=== PATIENT | female | born 1995 | race Hispanic/Latino ===

== ENCOUNTER 2019-04-17 14:38 | Emergency (ER) | payer OTHER ==
[2019-04-17 15:32] LABS: #Lymphocytes 0.7 thou/uL (1.20-3.40); #Monocytes 0.6 thou/uL (0.11-0.59); #Neutrophils 6.5 thou/uL (1.40-6.50); %Basophils 0.1 % (0.0-1.0); %Eosinophils 0.1 % (0.0-10.0); %Lymphocytes 9.5 % (21.0-51.0); %Monocytes 7.8 % (0.0-10.0); %Neutrophils 82.5 % (42.0-75.0); Hemoglobin 11.3 g/dL (12.0-16.0); Mean Corpuscular HGB CONC 35.5 g/dL (32.0-36.0); Mean Corpuscular Hemoglobin 32.5 pg (27.0-31.0); Mean Corpuscular Volume 91.7 fL (78.0-98.0); Mean Platelet Volume 7.6 fL (7.4-10.4); Platelet Count 231 thou/uL (130-400); Red Blood Cell (RBC) Count 3.47 mill/uL (4.20-5.40); White Blood Cell (WBC) Count 7.8 thou/uL (4.8-10.8)
[2019-04-17] MEDS ORDERED: Ondansetron PF 4 MG/2 ML Vial ONE (15:32)
[2019-04-17 15:55] LABS: ALT (SGPT) 22 U/L (8-55); AST (SGOT) 19 U/L (5-34); Albumin 3.4 g/dL (3.5-5.0); Alkaline Phosphatase 57 U/L (40-110); Anion Gap 9 mmol/L (10-20); BUN (Urea Nitrogen) 4 mg/dL (7.0-18.7); Bilirubin, Total 0.5 mg/dL (0.2-1.2); Calc. Creatinine Clearance 0 mL/min (70-130); Calcium 8.8 mg/dL (7.8-10.44); Carbon Dioxide 23 mmol/L (22-29); Chloride 103 mmol/L (98-107); Estimated GFR-MDRD Greater than 90; Globulin 3.6 g/dL (2.4-3.5); Glucose 103 mg/dL (70-105); Lipase 11 U/L (8-78); Potassium 3.4 mmol/L (3.5-5.1); Sodium 132 mmol/L (136-145)
[2019-04-17 16:04] LABS: Bilirubin Negative (Negative); Blood, Urine Negative (Negative); Clarity Clear (Clear); Glucose, Urine (Dipstick) Normal (Negative); Leukocyte Negative Leu/uL (Negative); Nitrite Negative (Negative); Protein, Urine (Dipstick) Negative (Neg-Trace); Urobilinogen Normal mg/dL (Less than 2)
== END 2019-04-17 16:58 | disposition home or self-care (01) ==
LOC: ERS 14:38
DX: O21.9 Vomiting of pregnancy, unspecified (principal); Z31.9 Encounter for procreative management, unspecified
CPT/HCPCS: 36415; 70450; 80053; 81003; 83690; 85025; 96361; 96374; J2405

== ENCOUNTER 2019-05-01 09:18 | Outpatient (CLI) | payer OTHER ==
--- NOTE | 2019-05-01 09:57 | ULT ---
EXAM: OB ultrasound COMPARISON: None HISTORY: female. Evaluate size, dates, and anatomy. TECHNIQUE: Multiplanar grayscale and color Doppler images were obtained in a transabdominal ult rasound. FINDINGS: There is a single live intrauterine with heart rate of 144 bpm. A survey wa s performed which is unremarkable. The head, intracranial structures, heart, stomach, kidneys, umbilical cord, umbilical cord insertion, spine, face, and extremities were evaluated and were unrema rkable. Estimated weight is 366 g. Average age of the fetus based off today's examination is 20 weeks 4 days. BPD 4.73 cm -- 20 weeks 3 days HC 17.97 cm -- 20 weeks 3 days AC 15.63 cm -- 20 weeks 6 days FL 3.35 cm -- 20 weeks 4 days The placenta is anterior in location without focal abnormality. ISAI is 11.8 cm which is normal. The cervix is normal in length. There is no evidence of placenta previa. IMPRESSION: Single live intrauterine with estimated age of 20 weeks 4 days.
== END 2019-05-01 09:19 | disposition home or self-care (01) ==
LOC: BICULT 09:18
PROVIDERS: ATTEND Family Medicine
DX: Z34.02 Encounter for supervision of normal first pregnancy, second trimester (principal); Z3A.20 20 weeks gestation of pregnancy
CPT/HCPCS: 76805

== ENCOUNTER 2019-09-15 04:31 | Outpatient (CLI) | payer OTHER ==
[2019-09-15 18:04] LABS: SARS-CoV-2 MS2 Positive; SARS-CoV-2 N Gene Negative; SARS-CoV-2 S Gene Negative; SARS-CoV-2 orf1ab Negative
== END 2019-09-15 04:32 | disposition home or self-care (01) ==
LOC: ERS 04:31
PROVIDERS: ATTEND Family Medicine
DX: Z01.812 Encounter for preprocedural laboratory examination (principal); Z11.59 Encounter for screening for other viral diseases
CPT/HCPCS: 87635; U0003

== ENCOUNTER 2019-09-16 19:00 | Inpatient (IN) | payer OTHER ==
[~2019-09-16 19:00] MED LIST: Bupivacaine PF 0.5% 30 ML VIAL ONE; Bupivacaine/Epinephrine 0.25% 30 ML VIAL ONE
[2019-09-16] MEDS ORDERED: Ibuprofen 800 MG TAB PO PRN (19:47)
[2019-09-16] MEDS ORDERED: Lidocaine 1% (PF) 30 ML VIAL SC PRN (19:47)
[2019-09-16] MEDS ORDERED: Ondansetron PF 4 MG/2 ML Vial IVP PRN (19:47)
[2019-09-16] MEDS ORDERED: NS / Oxytocin 40 units/1000ml 1,000 ML IV PRN (19:47)
[2019-09-16] MEDS ORDERED: Carboprost 250 MCG/ML AMP IM PRN (19:47)
[2019-09-16] MEDS ORDERED: hydrALAZINE 20 MG/ML VIAL SLOW IVP PRN (19:47)
[2019-09-16] MEDS ORDERED: Methylergonovine 0.2 MG/ML VIAL IM PRN (19:47)
[2019-09-16] MEDS ORDERED: NS w/ Oxytocin 10 units 500 ML IV SCH ×2 (19:47)
[2019-09-16] MEDS ORDERED: Diphenoxylate HCl/Atropine Tablet PO PRN (19:47)
[2019-09-16] MEDS ORDERED: HYDROcodone/Acetaminophen 5/325 mg Tablet PO PRN (19:47)
[2019-09-16] MEDS ORDERED: Misoprostol 200 MCG TAB PR PRN (19:47)
[2019-09-16] MEDS ORDERED: Promethazine HCl 25 MG/ML VIAL IM PRN (19:47)
[2019-09-16] MEDS ORDERED: Butorphanol Tartrate 1 MG/ML VIAL SLOW IVP PRN (19:47)
[2019-09-16] MEDS ORDERED: Penicillin G Potassium 5 MILL.UNITS in Sodium Chloride 0.9% 100 ML IVPB SCH (20:00)
[2019-09-16 20:22] VITALS: BMI 29.9
[2019-09-16 20:37] LABS: Hemoglobin 10.9 g/dL (12.0-16.0); Mean Corpuscular HGB CONC 33.3 g/dL (32.0-36.0); Mean Corpuscular Hemoglobin 29.7 pg (27.0-31.0); Mean Corpuscular Volume 89.1 fL (78.0-98.0); Mean Platelet Volume 8.3 fL (7.4-10.4); Platelet Count 286 thou/uL (130-400); RBC Distribution Width 12.6 % (11.5-14.5); Red Blood Cell (RBC) Count 3.67 mill/uL (4.20-5.40); White Blood Cell (WBC) Count 6.6 thou/uL (4.8-10.8)
[2019-09-16] MEDS: Lactated Ringer's 1,000 ML IV SCH (20:55)
[2019-09-16] MEDS: Misoprostol 100 MCG TAB PO SCH (20:56)
[2019-09-16 21:19] LABS: Syphilis Antibody Nonreactive (Nonreactive); Syphilis Antibody Index 0.06 S/CO (<1.00 Non-Reactive)
[2019-09-16 21:22] LABS: HBSAg Index 0.12 S/CO (0-0.99); Hep B Surf Ag Non-Reactive S/CO (NonReactive)
[2019-09-17] MEDS: Misoprostol 100 MCG TAB PO SCH ×3 (00:11→06:58)
[2019-09-17] MEDS: Lactated Ringer's 1,000 ML IV SCH ×3 (01:34→08:33)
[2019-09-17] MEDS ORDERED: Fentanyl 4 mcg/Bup 0.1% Cadd 100 ML ONE ×2 (05:14→14:03)
[2019-09-17] MEDS: Penicillin G 2.5 MILL.units 2.5 MILL.UNITS in Premix Bag 1 BAG IVPB SCH ×5 (05:45→19:02)
[2019-09-17] MEDS ORDERED: Ondansetron PF 4 MG/2 ML Vial IVP PRN ×3 (06:00→19:17)
[2019-09-17] MEDS ORDERED: Promethazine HCl 25 MG/ML VIAL IM PRN ×3 (06:00→19:17)
[2019-09-17] MEDS ORDERED: Communication Order-Pharmacy FS SCH ×2 (06:00→17:30)
[2019-09-17] MEDS ORDERED: Naloxone HCl 0.4 mg/ml Vial IVP PRN ×4 (06:00→17:26)
[2019-09-17] MEDS ORDERED: Fentanyl 4 mcg/Bupivacaine 0.1% Cassette 100 ML EPIDURAL SCH (06:00)
[2019-09-17] MEDS ORDERED: EPHEDRINE 25 MG/5 ML SYRINGE SLOW IVP PRN (06:00)
[2019-09-17] MEDS ORDERED: Acetaminophen 325 MG TAB PO PRN (06:00)
[2019-09-17] MEDS ORDERED: Lactated Ringer's 500 ML IV PRN (06:00)
[2019-09-17] MEDS ORDERED: diphenhydrAMINE 50 MG/ML VIAL IVP PRN ×2 (06:00→17:26)
[2019-09-17] MEDS ORDERED: Lidocaine 2% 10 ML INJ ONE (15:47)
[2019-09-17] MEDS ORDERED: EPINEPHrine 1 MG/ML AMP ONE (15:47)
[2019-09-17] MEDS ORDERED: Ondansetron PF 4 MG/2 ML Vial ONE (16:23)
[2019-09-17] MEDS ORDERED: PHENYLEPHRINE-NS 100 MCG/ML 10 ML SYRINGE ONE (16:23)
[2019-09-17] MEDS ORDERED: Ketorolac Tromethamine 30 MG/ML VIAL ONE (16:23)
[2019-09-17] MEDS ORDERED: Dexamethasone 4 mg/ml Vial ONE (16:23)
[2019-09-17] MEDS ORDERED: Oxytocin 10 UNITS/ML VIAL ONE ×2 (16:23→16:57)
[2019-09-17] MEDS ORDERED: EPHEDRINE 25 MG/5 ML SYRINGE ONE (16:23)
[2019-09-17] MEDS ORDERED: MORPHINE 5 MG/10 ML PF VIAL ONE (16:27)
[2019-09-17 17:06] LABS: Actual Bicarbonate (HCO3v) 23 mEq/L (22-28); Analyzer IN Cardio OR; Base Excess -2.6 mEq/L (-2.0 to +3.0); Base Excess (BEa) -4.8 mEq/L (-2.0 to +3.0); pH (Cord, venous) 7.36 (7.32-7.43)
[2019-09-17] MEDS ORDERED: HYDROmorphone 2 MG/ML VIAL SLOW IVP PRN (17:26)
[2019-09-17] MEDS ORDERED: Ketorolac Tromethamine 30 MG/ML VIAL IVP PRN (17:26)
[2019-09-17] MEDS ORDERED: L&D-Morphine 4 MG/ML VIAL SLOW IVP PRN (17:26)
[2019-09-17] MEDS ORDERED: Promethazine HCl 25 MG SUPP PR PRN (17:26)
[2019-09-17] MEDS ORDERED: Ondansetron HCl/PF 4 MG/2 ML Vial IVP PRN (17:26)
[2019-09-17] MEDS ORDERED: Naloxone HCl 0.4 mg/ml Vial IV PRN (17:26)
[2019-09-17] MEDS ORDERED: Meperidine HCl/PF 25 MG/ML VIAL SLOW IVP PRN (17:26)
[2019-09-17] MEDS ORDERED: NS / Oxytocin 40 units/1000ml 1,000 ML IV SCH (19:17)
[2019-09-17] MEDS ORDERED: hydrALAZINE 20 MG/ML VIAL SLOW IVP PRN (19:17)
[2019-09-17] MEDS ORDERED: Bisacodyl 10 MG SUPP PR PRN (19:17)
[2019-09-17] MEDS ORDERED: Adacel (T-DAP) 0.5 ML SYRINGE IM ONE (19:17)
[2019-09-17] MEDS ORDERED: diphenhydrAMINE 25 MG CAP PO PRN (19:17)
[2019-09-17] MEDS ORDERED: Lanolin Ointment 7 GM TUBE TOP PRN (19:17)
[2019-09-17] MEDS ORDERED: Simethicone Chewable 80 MG TAB PO PRN (19:17)
[2019-09-17] MEDS: Ferrous Sulfate 325 MG TAB PO SCH (22:07)
[2019-09-17] MEDS: Docusate Calcium (SURFAK) 240 MG CAP PO SCH (22:07)
[2019-09-17] MEDS: Ketorolac Tromethamine 30 MG/ML VIAL IVP SCH (22:39)
[2019-09-18] MEDS: Ketorolac Tromethamine 30 MG/ML VIAL IVP SCH ×2 (02:14→05:02)
[2019-09-18] MEDS ORDERED: Meperidine HCl/PF 25 MG/ML VIAL IM PRN (05:30)
[2019-09-18] MEDS ORDERED: HYDROcodone/Acetaminophen 5/325 mg Tablet PO PRN (05:30)
[2019-09-18] MEDS: Sodium Chloride 0.9% 1,000 ML IV SCH ×2 (06:08→07:45)
[2019-09-18 06:16] LABS: Hemoglobin 8.2 g/dL (12.0-16.0); Mean Corpuscular HGB CONC 33.7 g/dL (32.0-36.0); Mean Corpuscular Hemoglobin 30.7 pg (27.0-31.0); Mean Platelet Volume 8.4 fL (7.4-10.4); Platelet Count 210 thou/uL (130-400); RBC Distribution Width 12.8 % (11.5-14.5); Red Blood Cell (RBC) Count 2.68 mill/uL (4.20-5.40); White Blood Cell (WBC) Count 10.4 thou/uL (4.8-10.8)
[2019-09-18] MEDS ORDERED: Sodium Chloride 0.9% 10 ML ONE ×2 (07:36→07:47)
--- NOTE | 2019-09-18 07:56 | PDOC.OPDEL ---
OB Operative/Delivery Note Delivery Dr/Surgeon: Lenny Assist: Magui PGY-3 Pre-Delivery Diagnosis: non-reassuring tracing Procedure/Post Delivery Dx: primary low transverse CS Weeks gestation: 40 Anesthesia: epidural - Findings A Sex: male Weight: 3.345 kg (kg) - 1 min: 8 - 5 min: 9 - Additional Findings/Plan Placenta delivered: manual removal findings: low transverse hysterotomy without extension, other (There was a 1x1 cm lesion off the posterior of the uterus appeared to be possibly enodmetriosis in nature. No bleeding was noted) Estimated blood loss: 467 Compilations/Other Findings: Procedure in Detail: After risks, benefits, and alternatives were explained to the patient, she gave informed consent. Pre-operative antibiotics included Cefazolin 2 gram IV. The patient was taken to the operating room and spinal anesthesia was initiated. She was placed in the supine position with a left tilt and prepped and draped in usual sterile fashion. A Pfannenstiel incision was made with a scalpel and carried down to the level of the fascia which was sharply nicked. The fascial cut was extended bilaterally with curved Bah sissors. The inferior and superior edges of the cut fascial edges were elevated with Suzan clamps and the underlying rectus muscles were sharply and bluntly dissected free. The recti were divided digitally and retracted manually. The peritoneum was entered bluntly and retracted manually. Bladder blade was placed. Bladder flap was created with Metzenbaum scissors. A low transverse score was made with the scalpel and the uterus was entered in the midline with the scalpel. Clear fluid was seen. The hysterotomy was extended manually. The was noted to be vertex and was easily delivered by fundal pressure. Mouth and nares were bulb suctioned. Cord clamped and cut and grossly normal male/female infant was handed to waiting nurse. Cord blood was obtained. Placenta was manually extracted, found to be intact with 3 vessel cord and discarded. The uterus was externalized and the endometrium was curetted with a dry lap. The bladder blade was replaced and the uterus was closed with a running locking 1-0 Moncryl suture. Following this hemostasis was noted. The abdomen was irrigated with saline and suctioned free of clots. There was noted to be a small growth of posterior of uterus thought to be endometriosis. The incision was dressed with seprafilm. The uterus was internalized and the hysterotomy was again noted to be hemostatic. The peritoneum was then closed with 3-0 vicryl suture in running fashion. The fascia was closed with a running non-locking 0-PDS suture. The subcutaneous tissue was irrigated and there were no bleeders. The subq layer was then approximated with 3 interrpted 3-0 vicryl suture. The skin was approximated with aquilino and a pressure dressing was placed. All counts were correct. The patient tolerated the procedure well and was taken to the recovery room in stable condition. Complications: None Specimens: Cord blood sent to lab for blood type Findings: Grossly normal male/female infant with apgars of 8 and 9 Grossly normal placenta with 3 vessel cord discarded. Drains: Gee to gravity draining clear urine Post delivery plan: routine recovery
[2019-09-18] MEDS: Ferrous Sulfate 325 MG TAB PO SCH ×2 (09:50→22:19)
[2019-09-18] MEDS: Prenatal Vitamin 1 TAB PO SCH (09:50)
[2019-09-18] MEDS: Docusate Calcium (SURFAK) 240 MG CAP PO SCH ×2 (09:51→22:19)
[2019-09-18] MEDS: Ibuprofen 800 MG TAB PO SCH ×2 (14:03→22:19)
[2019-09-18] MEDS: HYDROcodone/Acetaminophen 5/325 mg Tablet PO PRN (16:41)
[2019-09-18] MEDS ORDERED: Ibuprofen 800 MG TAB PO SCH (23:00)
[2019-09-19] MEDS: Ibuprofen 800 MG TAB PO SCH ×2 (05:19→14:17)
[2019-09-19] MEDS: HYDROcodone/Acetaminophen 5/325 mg Tablet PO PRN (06:53)
[2019-09-19] MEDS: Ferrous Sulfate 325 MG TAB PO SCH (09:05)
[2019-09-19] MEDS: Docusate Calcium (SURFAK) 240 MG CAP PO SCH (09:06)
[2019-09-19] MEDS: Prenatal Vitamin 1 TAB PO SCH (09:06)
[2019-09-19 16:16] VITALS: BP 92/54; TEMP 98.1
== END 2019-09-19 17:30 | disposition home or self-care (01) | DRG 788 ==
LOC: L&D 19:46 → 3SW 09-17 20:10
PROVIDERS: ADMIT Family Medicine; ATTEND Family Medicine
PROC: 10D00Z1 Extraction of Products of Conception, Low, Open Approach (ICD-10-PCS; principal; 2019-09-17)
DX: O76 Abnormality in fetal heart rate and rhythm complicating labor and delivery (principal); O99.824 Streptococcus B carrier state complicating childbirth; Z3A.40 40 weeks gestation of pregnancy; Z37.0 Single live birth
CPT/HCPCS: 36415; 51702; 82805; 85027; 86780; 86850; 86900; 86901; 87340; 88307; J0171; J0690; J1100; J1200; J1885; J2001; J2274; J2405; J2540; J2590; J3490; S0020

== ENCOUNTER 2019-11-11 20:42 | Emergency (ER) | payer OTHER | END 2019-11-11 20:55 | disposition left against medical advice (07) | LOC: ERS 20:42 | DX: Z53.21 Procedure and treatment not carried out due to patient leaving prior to being seen by health care provider (principal) ==

== ENCOUNTER 2020-06-03 15:45 | Emergency (ER) | payer OTHER ==
[2020-06-03] MEDS ORDERED: Ondansetron ODT 4 MG TAB ONE (16:03)
[2020-06-03 16:57] LABS: #Eosinphils 0.1 thou/uL (0.0-0.7); #Lymphocytes 1.8 thou/uL (1.20-3.40); #Monocytes 0.4 thou/uL (0.11-0.59); #Neutrophils 5.2 thou/uL (1.40-6.50); %Basophils 0.3 % (0.0-1.0); %Eosinophils 1.1 % (0.0-10.0); %Lymphocytes 24.3 % (21.0-51.0); %Monocytes 5.1 % (0.0-10.0); %Neutrophils 69.2 % (42.0-75.0); Hemoglobin 13.7 g/dL (12.0-16.0); Mean Corpuscular HGB CONC 33.8 g/dL (32.0-36.0); Mean Corpuscular Hemoglobin 30.6 pg (27.0-31.0); Mean Corpuscular Volume 90.6 fL (78.0-98.0); Platelet Count 273 thou/uL (130-400); RBC Distribution Width 11.8 % (11.5-14.5); Red Blood Cell (RBC) Count 4.47 mill/uL (4.20-5.40); White Blood Cell (WBC) Count 7.6 thou/uL (4.8-10.8)
[2020-06-03 17:23] LABS: ALT (SGPT) 20 U/L (8-55); AST (SGOT) 16 U/L (5-34); Albumin 4.3 g/dL (3.5-5.0); Alkaline Phosphatase 74 U/L (40-110); Anion Gap 11 mmol/L (10-20); BUN (Urea Nitrogen) 10 mg/dL (7.0-18.7); Bilirubin, Total 0.2 mg/dL (0.2-1.2); Calc. Creatinine Clearance 0 mL/min (70-130); Calcium 9.4 mg/dL (7.8-10.44); Carbon Dioxide 26 mmol/L (22-29); Chloride 105 mmol/L (98-107); Globulin 3.5 g/dL (2.4-3.5); Glucose 101 mg/dL (70-105); Lipase 41 U/L (8-78); Potassium 3.7 mmol/L (3.5-5.1); Protein, Total 7.8 g/dL (6.0-8.3); Sodium 138 mmol/L (136-145)
[2020-06-03 17:23] LABS: Bilirubin Negative (Negative); Blood, Urine Negative (Negative); Clarity Extra Turbid (Clear); Glucose, Urine (Dipstick) Normal (Negative); Ketone, Urine Negative (Negative); Leukocyte 250 Leu/uL (Negative); Nitrite Negative (Negative); Protein, Urine (Dipstick) 20 mg/dL (Neg-Trace); RBC/HPF 0-3 HPF (0-3); Specific Gravity, Urine 1.019 (1.002-1.036); Squamous Epithelial None Seen HPF (0-3); Urobilinogen Normal mg/dL (Less than 2); WBC/HPF None Seen HPF (0-3)
[2020-06-03 17:32] LABS: Bacteria/HPF 1+ HPF (None Seen)
== END 2020-06-03 18:17 | disposition home or self-care (01) ==
LOC: ERS 15:45
DX: K21.9 Gastro-esophageal reflux disease without esophagitis (principal); N39.0 Urinary tract infection, site not specified
CPT/HCPCS: 36415; 80053; 81003; 81015; 83690; 85025; 99284; Q0162

== ENCOUNTER 2020-09-26 19:24 | Observation (INO) | payer OTHER ==
[2020-09-26] MEDS ORDERED: Morphine 4 MG/ML VIAL ONE (20:25)
[2020-09-26] MEDS ORDERED: Ondansetron PF 4 MG/2 ML Vial ONE (20:25)
[2020-09-26 20:45] LABS: #Basophils 0.1 thou/uL (0.0-0.2); #Eosinphils 0.1 thou/uL (0.0-0.7); #Lymphocytes 1.2 thou/uL (1.20-3.40); #Monocytes 0.5 thou/uL (0.11-0.59); #Neutrophils 8.7 thou/uL (1.40-6.50); %Basophils 0.7 % (0.0-1.0); %Eosinophils 0.6 % (0.0-10.0); %Lymphocytes 11.3 % (21.0-51.0); %Monocytes 4.9 % (0.0-10.0); %Neutrophils 82.5 % (42.0-75.0); Hemoglobin 14.6 g/dL (12.0-16.0); Mean Corpuscular HGB CONC 35.4 g/dL (32.0-36.0); Mean Corpuscular Hemoglobin 32.8 pg (27.0-31.0); Mean Corpuscular Volume 92.6 fL (78.0-98.0); Platelet Count 278 thou/uL (130-400); RBC Distribution Width 11.5 % (11.5-14.5); Red Blood Cell (RBC) Count 4.45 mill/uL (4.20-5.40); White Blood Cell (WBC) Count 10.6 thou/uL (4.8-10.8)
[2020-09-26 21:10] LABS: ALT (SGPT) 181 U/L (8-55); AST (SGOT) 185 U/L (5-34); Albumin 4.4 g/dL (3.5-5.0); Alkaline Phosphatase 92 U/L (40-110); Anion Gap 12 mmol/L (10-20); BUN (Urea Nitrogen) 8 mg/dL (7.0-18.7); Bilirubin, Total 0.6 mg/dL (0.2-1.2); Calc. Creatinine Clearance 0 mL/min (70-130); Calcium 9.7 mg/dL (7.8-10.44); Carbon Dioxide 25 mmol/L (22-29); Chloride 104 mmol/L (98-107); Globulin 3.5 g/dL (2.4-3.5); Glucose 111 mg/dL (70-105); Lipase 47 U/L (8-78); Potassium 3.9 mmol/L (3.5-5.1); Protein, Total 7.9 g/dL (6.0-8.3); Sodium 137 mmol/L (136-145)
[2020-09-26 21:39] LABS: Bilirubin Negative (Negative); Blood, Urine Negative (Negative); Clarity Turbid (Clear); Glucose, Urine (Dipstick) Normal (Negative); Ketone, Urine Negative (Negative); Leukocyte 75 Leu/uL (Negative); Nitrite Negative (Negative); Protein, Urine (Dipstick) Negative (Neg-Trace); RBC/HPF 0-3 HPF (0-3); Specific Gravity, Urine 1.006 (1.002-1.036); Squamous Epithelial 0-3 HPF (0-3); Urobilinogen Normal mg/dL (Less than 2); pH, Urine 7.5 (5.0-9.0)
[2020-09-26 21:40] LABS: Bacteria/HPF 1+ HPF (None Seen)
[2020-09-26 21:41] LABS: Pregnancy Test - Urine (BHCG) Negative (Negative); Pregu Control Background? CLEAR/WHITE (CLR/WHITE); Pregu Control Bar Appear? YES (CONTROL BAR); Specific Gravity 1.006 (1.002-1.036)
[2020-09-26] MEDS ORDERED: cefTRIAXone\\ROCEPHIN 2 GM VIAL ONE (22:18)
[2020-09-26] MEDS ORDERED: Morphine 4 MG/ML VIAL SLOW IVP PRN (23:17)
[2020-09-26] MEDS ORDERED: Ondansetron ODT 4 MG TAB SL PRN (23:30)
[2020-09-26] MEDS ORDERED: Ondansetron PF 4 MG/2 ML Vial IVP PRN (23:30)
[2020-09-26 23:44] VITALS: BMI 24.5
[2020-09-27] MEDS: Sodium Chloride 0.9% 1,000 ML IV SCH ×2 (00:15→15:15)
[2020-09-27 00:37] LABS: SARS-CoV-2 NAA Rapid Test Not Detected (NotDetected)
[2020-09-27] MEDS ORDERED: Fentanyl 100 MCG/2 ML VIAL ONE ×2 (09:36→13:57)
[2020-09-27] MEDS ORDERED: Lidocaine 4% Topical Sol 50 ML BOT ONE (09:37)
[2020-09-27] MEDS ORDERED: Promethazine HCl 25 MG/ML VIAL SLOW IVP PRN (10:57)
[2020-09-27] MEDS ORDERED: Meperidine HCl/PF 25 MG/ML VIAL SLOW IVP PRN (10:57)
[2020-09-27] MEDS ORDERED: Ondansetron HCl/PF 4 MG/2 ML Vial IVP PRN (10:57)
[2020-09-27] MEDS ORDERED: Promethazine HCl 25 MG/ML VIAL IM PRN ×2 (10:57→14:25)
[2020-09-27] MEDS ORDERED: Bupivacaine 0.25% HCL 30 ML VIAL ONE (11:47)
[2020-09-27] MEDS ORDERED: Lidocaine 1% w/Epinephrine 1:100K 20 ML VIAL ONE (11:47)
[2020-09-27] MEDS ORDERED: Iothalamate Meglumine 60% 50 ML VIAL FS ONE (11:47)
[2020-09-27] MEDS ORDERED: Ondansetron PF 4 MG/2 ML Vial ONE (12:22)
[2020-09-27] MEDS ORDERED: Rocuronium Bromide 10 MG/ML (10ML VIAL) ONE (12:22)
[2020-09-27] MEDS ORDERED: Glycopyrrolate 0.2 MG/ML 5 ML SYRINGE ONE (12:22)
[2020-09-27] MEDS ORDERED: Dexamethasone 20 MG/5 ML VIAL ONE (12:22)
[2020-09-27] MEDS ORDERED: PROPOFOL 200 MG/20 ML VIAL ONE (12:22)
[2020-09-27] MEDS ORDERED: Lidocaine 1% PF 5 ML VIAL ONE (12:22)
[2020-09-27] MEDS ORDERED: Dextrose 5% in Water 1,000 ML IV PRN (14:25)
[2020-09-27] MEDS ORDERED: Ondansetron PF 4 MG/2 ML Vial IVP PRN (14:25)
[2020-09-27] MEDS ORDERED: Dextrose 50% Abboject 50 ML SYRINGE SLOW IVP PRN (14:25)
[2020-09-27] MEDS ORDERED: Morphine 4 MG/ML VIAL SLOW IVP PRN (14:25)
[2020-09-27] MEDS ORDERED: HYDROcodone/Acetaminophen 10/325 mg Tablet PO PRN (14:25)
[2020-09-27] MEDS ORDERED: Morphine 2 MG/ML VIAL SLOW IVP PRN (14:25)
[2020-09-27] MEDS ORDERED: Mag-Al 1200 mg/1200 mg/30 ML UDCUP PO PRN (14:25)
[2020-09-27] MEDS ORDERED: hydrALAZINE 20 MG/ML VIAL SLOW IVP PRN (14:25)
[2020-09-27] MEDS ORDERED: Calcium Carbonate 500 MG ChewTAB PO PRN (14:25)
[2020-09-27] MEDS ORDERED: D5 1/2 NS w/20 mEq KCL 1,000 ML IV SCH (14:25)
[2020-09-27 18:05] VITALS: BP 108/70; TEMP 98.5
[2020-09-27] MEDS ORDERED: Famotidine/PF 20 mg/2ml Vial SLOW IVP SCH (21:00)
[2020-09-27] MEDS ORDERED: Famotidine 20 MG TAB PO SCH (21:00)
== END 2020-09-27 18:25 | disposition home or self-care (01) ==
LOC: ERS 19:24 → ONC 21:56
PROVIDERS: ADMIT Surgery; ATTEND Surgery
PROC: 0FT44ZZ Resection of Gallbladder, Percutaneous Endoscopic Approach (ICD-10-PCS; principal; 2020-09-27)
PROC: BF101ZZ Fluoroscopy of Bile Ducts using Low Osmolar Contrast (ICD-10-PCS; 2020-09-27)
DX: K80.12 Calculus of gallbladder with acute and chronic cholecystitis without obstruction (principal); Z79.899 Other long term (current) drug therapy; Z20.822 Contact with and (suspected) exposure to COVID-19
CPT/HCPCS: 36415; 47532; 76705; 80053; 81003; 81015; 81025; 83690; 85025; 87077; 87086; 87186; 88304; 96365; 96375; 96376; G0378; J0690; J0696; J1100; J2270; J2405; J2704; J3010; J3480; Q9961; S0020; U0002; U0005

== ENCOUNTER 2022-09-11 12:53 | Outpatient (CLI) | payer OTHER | END 2022-09-11 12:54 | disposition home or self-care (01) | LOC: BICULT 12:53 | PROVIDERS: ATTEND Family Medicine | DX: O09.892 Supervision of other high risk pregnancies, second trimester (principal); Z3A.24 24 weeks gestation of pregnancy | CPT/HCPCS: 76805 ==